=== PATIENT | female | born 1960 | race African-American/Black ===

== ENCOUNTER 2016-12-12 12:49 | Emergency (ER) | payer OTHER ==
[2016-12-12 13:02] VITALS: BP 112/68; BMI 53.1
--- NOTE | 2016-12-12 13:49 | DR.GENAD ---
HPI - PCP Primary Care Physician: ARMINDA - Complaint/Symptoms Chief Complaint Doctors Comments: Patient states that she has a cough and soreness in her chest for a few days. She denies fever, vomiting or dirrrhea. She admits to a history of lower extremtiy weakness since the s. Chief Complaint:: "I THINK I PULLED A MUSCLE IN MY NECK." Self Treatment fo Chief Complaint: NONE - Source History Provided: Patient - Mode of Arrival Mode of Arrival: Wheelchair - Timing Onset of Chief Complaint: 12/10/16 PMH - PMH Past Medical History: Yes Past Medical History: COPD, Diabetes, Hypertension Past Surgical History: Yes Surgical History: - Family History History of Family Medical Conditions: Yes Family Medical History: Diabetes Mellitus, [place] - Social History Does patient currently use any type of tobacco product: No Have you used tobacco products in the last 12 months: No Type of Tobacco Use: None Does any household member use tobacco: No Alcohol Use: None Do you use any recreational Drugs:: No Lives With: Family Lives Where: Home - infectious screening In the last 2 months have you had wt loss of >10#?: NO Have you had fever, night sweats or hemotysis?: No Have you traveled outside the country in the last 6 months?: No ROS - Review of Systems Constitutional: negative: Diaphoresis Eyes: No Symptoms Reported ENTM: No Symptoms Reported Respiratoy: No Symptoms Reported Cardiovascular: No Symptoms Reported Gastrointestinal/Abdominal: No Symptoms Reported Genitourinary: Other (neurogenic bladder) Neurological: Weakness (lower extremity ) Musculoskeletal: No Symptoms Reported Integumentary: No Symptoms Reported Hematologic/Lymphatic: No Symptoms Reported Endocrine: No Symptoms Reported Psychiatric: No Symptoms Reported All Other Systems: Reviewed and Negative PE - Vital Signs Vitals: Temperature 97.9 F Pulse Rate 96 Respiratory Rate 22 Blood Pressure 112/68 O2 Sat by Pulse Oximetry 99 - General Limitations: Physical Limitation General Appearance: Alert, In No Apparent Distress - Head Head Exam: Normal Inspection, Atraumatic - Eyes Eye exam: Normal Appearance, PERRL, EOMI - ENT ENT Exam: Normal Exam External Ear Exam: Normal External Inspection TM/Canal Exam: Bilateral Normal Nose Exam: Normal Nose Exam Mouth Exam: Normal Inspection Throat Exam: Normal Inspection - Neck Neck Exam: Normal Inspection - Chest Chest Inspection: Normal Inspection - Respiratory Respiratory Exam: Normal Lung Sounds Bilat Respiratory Exam: Bilateral Clear to Auscultation - Cardiovascular Cardiovascular Exam: Regular Rate, Normal Rhythm - Abdominal Exam Abdominal Exam: Normal Inspection, Normal Bowel Sounds Abdominal Tenderness: negative: RUQ, RLQ, LUQ, LLQ, Epigastrium, Suprapubic, Diffuse, Mild, Moderate, Severe, Other - Extremities Extremities Exam: Normal Inspection - Back Back Exam: Normal Inspection - Neurologic Neurological Exam: Alert, Oriented X3, CN II-XII Intact - Psychiatric Psychiatric Exam: Normal Affect, Normal Mood - Skin Skin Exam: Warm, Dry, Intact ROR - XRAY XRAY Interpreted by: Radiologist (Chest: The heart is enlarged. No congestive heart failure is noted. The lungs are hypoinflated but free of acute infiltrates. The bony throax is unremarkable. Impression: Cardiomegaly without congestive heart failure.) - Diagnosis Discharge Problem: Cough, H/O cardiomegaly - Discharge Plan Condition: Stable - Follow ups/Referrals Follow ups/Referrals: Abeba Singletary [Primary Care Provider] - 3 days - Instructions
--- NOTE | 2016-12-12 14:16 | RAD ---
HISTORY: Cough, congestion Study: AP chest Comparison: None Findings: The heart is enlarged. No congestive heart failure is noted. The lungs are hypoinflated but free of a cute infiltrates. The bony thorax is unremarkable. IMPRESSION: Cardiomegaly without congestive heart failure Lungs hypoinflated but clear Reported By:
== END 2016-12-12 14:31 | disposition home or self-care (01) ==
LOC: ER 13:18
DX: I51.7 Cardiomegaly (principal); R05 Cough
CPT/HCPCS: 71010; 99282